=== PATIENT | male | born 1985 | race Caucasian/White ===

== ENCOUNTER → 2017-11-25 | Outpatient (CLI) | payer OTHER ==
--- NOTE | 2017-11-25 11:03 | RADRPT ---
EXAM DATE/TIME: 11/25/2017 10:33 [place] COMPARISON: No previous studies available for comparison. INDICATIONS : Right knee pain with no known injury. MEDICAL HISTORY : None. SURGICAL HISTORY : None. ENCOUNTER: Initial ACUITY: 2 weeks PAIN SCORE: 0/10 LOCATION: Right Knee FINDINGS: Four view examination of the right knee demonstrates no evidence of fracture or dislocation. Bony mi neralization is normal. The articular surfaces are intact. The suprapatellar soft tissues have a no rmal configuration. CONCLUSION: Negative for fracture or dislocation. Follow up in 7-10 days is suggested if symptoms persist. Kody Garcia MD FACR on November 25, 2017 at 11:00 Board Certified Radiologist. This report was verified electronically.
== END ==
LOC: HRAD 10:17
DX: M25.561 Pain in right knee (principal)
CPT/HCPCS: 73564